=== PATIENT | female | born 1950 | race Caucasian/White ===

== ENCOUNTER → 2024-04-22 09:30 | Outpatient (REF) | payer MEDICARE, BC, SELFPAY ==
[2024-04-22 10:49] LABS: Hematocrit 40.3 % (37.0-47.0); Hemoglobin 13.9 g/dL (12.0-16.0); Mean Corp Hgb Conc. 34.5 g/dL (33.0-37.0); Mean Corpuscular Hgb 33.1 pg (27.0-31.0); Platelet Count 213 10^3/uL (130-400); Red Cell Dist. Width 12.7 % (11.5-14.5); White Blood Cell Count 5.4 10^3/uL (4.8-10.8)
[2024-04-22 11:40] LABS: Blood Urea Nitrogen 15 mg/dl (7-17); Calcium 9.1 mg/dl (8.4-10.2); Carbon Dioxide 29 mmol/L (22-30); Chloride 104 mmol/L (98-107); Glucose 88 mg/dl (70-99); Potassium 4.5 mmol/L (3.5-5.1); Sodium 139 mmol/L (135-145); eGFR > 60.00
== END ==
LOC: SDSPAT 09:30
PROVIDERS: ATTENDING PHYSICIAN Obstetrics & Gynecology; FAMILY PHYSICIAN Internal Medicine
DX: Z01.818 Encounter for other preprocedural examination (principal)
CPT/HCPCS: 36415; 80048; 85027; 86850; 86900; 86901; 93005

== ENCOUNTER 2024-04-27 05:59 | Day surgery (SDC) | payer MEDICARE, BC, SELFPAY ==
[2024-04-22 13:40] VITALS: BMI 30.8
[2024-04-27] VITALS (18 sets, daily range): BP systolic 108–149; BP diastolic 69–94; BMI 30.8
[2024-04-27] MEDS: Pyridium 200 MG PO (06:25)
[2024-04-27] MEDS: HEPARIN 5000 UNITS SC (06:25)
[2024-04-27] MEDS: TYLENOL 1000 MG PO (06:48)
[2024-04-27] MEDS: NORMOSOL-R/PLASMALYTE-A 1000 IV (06:49)
== END 2024-04-27 16:21 | disposition home or self-care (01) ==
LOC: SDS 05:59
PROVIDERS: ATTENDING PHYSICIAN Obstetrics & Gynecology; FAMILY PHYSICIAN Internal Medicine
DX: N81.11 Cystocele, midline (principal); N39.3 Stress incontinence (female) (male); N36.41 Hypermobility of urethra; D25.9 Leiomyoma of uterus, unspecified
CPT/HCPCS: 57425; 58542; 57240; 57288; 88305; 86900; 86901; C1763; C1771